=== PATIENT | male | born 1960 | race Caucasian/White ===

== ENCOUNTER → 2020-06-12 06:59 | Outpatient (CLI) | payer BC, SELFPAY ==
[2020-06-12 20:54] LABS: SARS-CoV-2 RNA PCR Negative
== END ==
PROVIDERS: PCP Physician Assistant; Visit Provider Surgery
DX: Z01.812 Encounter for preprocedural laboratory examination (principal); Z20.822 Contact with and (suspected) exposure to COVID-19
CPT/HCPCS: C9803; U0003; U0005

== ENCOUNTER 2020-06-15 03:16 | Day surgery (SDC) | payer BC, SELFPAY ==
[2020-06-11 09:15] VITALS: BMI 20.8
[2020-06-15] VITALS (9 sets, daily range): BP systolic 121–150; BP diastolic 71–86; PULSE 47–62; RESP 12–18; TEMP 36.4–36.7; O2SAT 98–100
[2020-06-15] MEDS: LACTATED RINGERS 1,000 ML 30 ML IV CONT ×2 (08:41→12:38)
[2020-06-15] MEDS: KETOROLAC 15 MG/ML VIAL (*BKC) IV PUSH (08:43)
[2020-06-15] MEDS: ACETAMINOPHEN 500 MG TABLET 1000 MG PO (08:43)
--- NOTE | 2020-06-15 08:59 | WPDANESEPPF ---
Anes - Initial Pre Proc Eval Procedure: Operation Date: 06/15/20 10:30 Proposed Procedures p Laparoscopic Bilateral Inguinal Hernia Repair with Mesh,Davinci Assisted - Arie Correa DO Date/Time: 06/15/20 08:59 Surgeon: Arie Correa DO Pre Op Diagnosis: bilateral inguinal hernias Patient Data Age: 59 Gender: M Height: 1.78 m Weight: 65.8 kg Allergies Allergy/AdvReac Type Severity Reaction Status Date / Time No Known Allergies Allergy Verified 06/11/20 09:20 Home Medications Medication Instructions Recorded Confirmed Type No Home Medications 04/26/20 06/11/20 History Patient hx anesthesia problems: none Family hx anesthesia problems: none [facility] Past Medical History Medical History (Updated 06/15/20 @ 09:00 by Je White DO) Elevated LDL cholesterol level 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 Surgical History Surgical History H/O abdominal surgery S/P vasectomy [place] teeth extracted Family History Family History Mother Family history of cardiovascular disease Family history of Alzheimer's disease Father Family history of malignant neoplasm of brain Sibling Malignant neoplasm of prostate Heart attack Lung cancer Breast cancer Other Hypertension Thyroid disease Social History Social History Smoking status: Former smoker Tobacco type: pipe Second hand tobacco smoke exposure: No Smoking end date: 02/19/90 Alcohol intake: current Drinks per week: 14 Substance use: never Substance use type: does not use Living arrangements: with family Gender identity (if verbalized by the patient): Male Spiritual care concerns: No Anes - Eval Final PreProcedure Day of Procedure 06/15/20 08:59 Patient weight: normal Heart: regular rate and rhythm Lungs: clear to auscultation and normal air movement Airway: Mallampati scale class II Neurological: alert and oriented Last oral intake: >/= 8 hours ASA classification: III Emergent: no Anesthetic plan: proceed Anesthesia type and monitoring: general ETT and standard monitoring Informed Consent: The patient's anesthetic plan and its attendant risks and benefits were discussed with the patient/family/POA. Questions were solicited and answers provided to the satisfaction of the patient/family/POA.
--- NOTE | 2020-06-15 10:12 | WPDHPUPDATE1 ---
History and Physical Update Update Date/Time: 06/15/20 10:12 History and Physical has been reviewed, including an updated exam of the patient. There are NO changes in the patient's condition. Risks, benefits, and alternatives have been discussed and questions answered. Patient agrees to proceed with procedure.
[2020-06-15] MEDS: ceFAZolin 2 GM/D5W 50 ML 2 GM/50 ML BAG IVPB (10:43)
[2020-06-15] MEDS: BUPIVACAINE/EPINEPHRINE 0.5% 30 ML VIAL INFILTRATE (11:00)
--- NOTE | 2020-06-15 12:10 | SUR.OPER ---
BILATERAL INGUINAL HERNIA MESH LEFT PROGRIP 15X10 LOT [id number] EXP 2022-12-19 RIGHT PROGRIP 15X10 LOT [id number] EXP 2022-11-18.
--- NOTE | 2020-06-15 12:27 | PM.PROC ---
Procedure Note - Detailed Date of procedure: 06/15/20 Pre-op diagnosis: bilateral inguinal hernias Post-op diagnosis: same (Bilateral indirect inguinal hernia) Procedure performed: Laparoscopic bilateral inguinal hernia repair with Progrip mesh, da Fransisco assisted Description of procedure: Procedure as well as risks, benefits, and alternatives were discussed with the patient. Written consent was obtained and placed in chart prior to procedure. Patient was brought back to surgical suite. He was placed supine on operating table. Time-out was done to confirm patient and procedure. He was then intubated by Anesthesia Department. His abdomen was prepped and draped in sterile fashion using chlorhexidine prep. 0.5% bupivacaine with epinephrine was infiltrated at each location for incision. A 12 millimeter transverse incision was made just superior to the umbilicus using a 15 blade scalpel. Blunt dissection was carried out down to the linea alba. A vertical incision was made at the linea alba using a 15 blade scalpel. The peritoneum was then bluntly entered. A 12 millimeter trocar was inserted and carbon dioxide insufflation was used to create a pneumoperitoneum. A camera was inserted and the abdominal cavity was inspected. The patient was placed in slight Trendelenburg position. An 8 millimeter incision was made on the right lateral abdomen and an 8 millimeter trocar was inserted under direct visualization. Another 8 millimeter incision was made in the left lateral abdomen and an 8 millimeter trocar was inserted under direct visualization. The robotic arms were brought up to the patient's bedside and secured to the ports. The camera and instruments were inserted. I then moved over to the robotic console and took control of the camera and instruments. After careful inspection of the abdominal cavity, I began scoring the peritoneum along the left lower quadrant using scissors with electrocautery. The preperitoneal plane was entered and this was carefully dissected caudally along the inferior epigastric vessels. Careful dissection with scissors with electrocautery and blunt dissection was used to continue this dissection. I dissected far enough laterally to allow for mesh placement, and also dissected medially to identify the pubic arch and Domingo's ligament. The hernia sac was identified and carefully dissected posteriorly. The cord contents were also identified and the peritoneum was carefully dissected far enough posteriorly to allow for mesh placement. Once an adequate pocket was created, I then placed the mesh within the preperitoneal pocket and carefully unfolded it. The mesh was centered on the hernia defect with adequate overlap circumferentially. The inferior edge of the mesh was inspected to ensure that it was far enough away from the peritoneal edge. The mesh appeared in proper position overlying the entire myopectineal orifice. The peritoneum was then closed over the mesh using a 3-0 V-lock running absorbable suture. I then began scoring the peritoneum along the right lower quadrant using scissors with electrocautery. The preperitoneal plane was entered and this was carefully dissected caudally along the inferior epigastric vessels. Careful dissection with scissors with electrocautery and blunt dissection was used to continue this dissection. I dissected far enough laterally to allow for mesh placement, and also dissected medially to identify the pubic arch and Domingo's ligament. The hernia sac was identified and carefully dissected posteriorly. The cord contents were also identified and the peritoneum was carefully dissected far enough posteriorly to allow for mesh placement. Once an adequate pocket was created, I then placed the mesh within the preperitoneal pocket and carefully unfolded it. The mesh was centered on the hernia defect with adequate overlap circumferentially. The inferior edge of the mesh was inspected to ensure that it was far enou
--- NOTE | 2020-06-15 13:12 | SUR.PHASEI ---
1312 - dr. gurrola at bedside talking with pt
== END 2020-06-15 14:35 | disposition home or self-care (01) ==
PROVIDERS: PCP Physician Assistant; Visit Provider Surgery
PROC: 8E0Y4CZ Robotic Assisted Procedure of Lower Extremity, Percutaneous Endoscopic Approach (ICD-10-PCS; CPT 49650; principal; 2020-06-15 10:30)
DX: K40.20 Bilateral inguinal hernia, without obstruction or gangrene, not specified as recurrent (principal); E78.5 Hyperlipidemia, unspecified; Z87.891 Personal history of nicotine dependence; Z87.738 Personal history of other specified (corrected) congenital malformations of digestive system
CPT/HCPCS: 49650; S2900; 36415; 86850; 86900; 86901; A9270; C1781; J0690; J1100; J1170; J1885; J2250; J2405; J2704; J2710; J3010; J7030; J7120

== ENCOUNTER 2022-07-04 12:33 | Outpatient (CLI) | payer BC, SELFPAY ==
--- NOTE | ~2022-07-04 | US_ITS ---
US pelvic limited 07/04/2022 13:25 Indication: Urinary frequency Procedure: High-resolution Limited ultrasound of the pelvis using transabdominal technique Comparison: No prior studies for comparison. Findings: There is lobulated soft tissue along the inferior margin of the bladder wall which may repr esent an enlarged prostate gland, although bladder mass is not excluded. Bilateral ureteral jets are present. Prevoid volume is 661 cc. Postvoid volume is 225 cc. Impression: 1: Prominent lobulated soft tissue inferior margin of the bladder which may be attributable to enlarg ed prostate gland or bladder wall mass. Recommend correlation with cystoscopy. 2: Large post void residual measuring 225 cc. Reviewed, dictated and finalized at location L. Impression: 1: Prominent lobulated soft tissue inferior margin of the bladder which may be attributable to enlarged prostate gland or bladder wall mass. Recommend correla tion with cystoscopy. 2: Large post void residual measuring 225 cc.
== END 2022-07-04 12:34 | disposition home or self-care (01) ==
PROVIDERS: PCP Internal Medicine; Visit Provider Internal Medicine
DX: R39.15 Urgency of urination (principal)
CPT/HCPCS: 76857